=== PATIENT | female | born 1995 | race Caucasian/White ===

== ENCOUNTER 2016-09-20 16:28 | Observation (INO) | payer OTHER, SELFPAY ==
[~2016-09-20] VITALS: Ht 162.6 cm; Wt 90.1 kg
[2016-09-20] MEDS ORDERED: Plaquenil (16:39)
[2016-09-20] MEDS ORDERED: [UNRECOGNIZED DRUG - OTHER] (16:39)
[2016-09-20] MEDS ORDERED: OMEP20CA3 PO (16:39)
[2016-09-20] MEDS ORDERED: ONDA4TAB6 (16:39)
[2016-09-20] MEDS ORDERED: HYDR-3713 (16:39)
[2016-09-20] MEDS ORDERED: ONDANSETRON 4 MG ORAL DISINTEGRATING TAB (S0181) PO ONE (18:45)
[2016-09-20] MEDS: ONDANSETRON 4MG/2ML VIAL (J2405) IV ONE ×2 (19:03→20:23)
[2016-09-20] MEDS: NS 1,000 ML IV ONE ×2 (19:03→19:30)
[2016-09-20 19:14] LABS: BASO % 0.3 % (0.0-1.0); EOS # 0.1 K/mm3 (0.0-0.50); EOS % 1.3 % (0.0-3.0); LARGE UNSTAINED CELL # 0.1 K/mm3 (0.0-0.4); LARGE UNSTAINED CELL % 1.8 % (0.0-4.0); LYMPH % 13.6 % (24.0-44.0); MEAN CORPUSCULAR HEMOGLOBIN 30.9 pg (27.0-33.0); MEAN CORPUSCULAR HGB CONC 34.3 g/dl (32.0-36.5); MEAN CORPUSCULAR VOLUME 90.1 fl (80.0-96.0); MONO # 0.4 K/mm3 (0.0-0.8); MONO % 5.3 % (0.0-5.0); NEUTROPHILS # 5.2 K/mm3 (1.8-7.7); NEUTROPHILS % 77.7 % (36.0-66.0); PLATELET COUNT, AUTOMATED 189 k/mm3 (150-450); RED CELL DISTRIBUTION WIDTH 14.5 % (11.5-14.5); WHITE BLOOD COUNT 6.6 K/mm3 (4.0-10.0)
[2016-09-20 19:30] LABS: CONTROL LINE UCG INT CTR LINE PRESENT
[2016-09-20 19:38] LABS: ALBUMIN 3.7 GM/DL (3.2-5.2); ALBUMIN/GLOBULIN RATIO 1.19 (1.00-1.93); ALKALINE PHOSPHATASE 73 U/L (45-117); ALT/SGPT 37 U/L (12-78); AMYLASE 37 U/L (25-115); ANION GAP 20 MEQ/L (8-16); AST/SGOT 37 U/L (15-37); BILIRUBIN,DIRECT 0.3 MG/DL (0.0-0.2); BILIRUBIN,TOTAL 0.9 MG/DL (0.2-1.0); BLOOD UREA NITROGEN 1 MG/DL (7-18); CALCIUM LEVEL 8.9 MG/DL (8.5-10.1); CARBON DIOXIDE LEVEL 16 MEQ/L (21-32); CHLORIDE LEVEL 107 MEQ/L (98-107); GLOMERULAR FILTRATION RATE > 60.0 (>60); GLUCOSE, FASTING 60 MG/DL (70-105); SODIUM LEVEL 143 MEQ/L (136-145); TOTAL PROTEIN 6.8 GM/DL (6.4-8.2)
[2016-09-20 19:43] LABS: POTASSIUM SERUM 3.7 MEQ/L (3.5-5.1)
[2016-09-20] MEDS ORDERED: GASTROGRAFIN SOLUTION 30ML (Q9963) PO ONE (21:00)
[2016-09-20] MEDS ORDERED: NORC1TAB4 PO (21:01)
[2016-09-20] MEDS ORDERED: CHEW500C2 PO (21:01)
[2016-09-20] MEDS ORDERED: VITACHTA PO (21:01)
[2016-09-20] MEDS ORDERED: B121000T PO (21:01)
[2016-09-20] MEDS ORDERED: METOCLOPRAMIDE INJ 10MG/2ML VIAL (J2765) As Ordered ONE (21:12)
[2016-09-20] MEDS ORDERED: METOCLOPRAMIDE INJ 10MG/2ML VIAL (J2765) IV ONE (21:15)
[2016-09-20] MEDS ORDERED: GASTROGRAFIN SOLUTION 30ML PO ONE (21:30)
[2016-09-20] MEDS ORDERED: NS 1,000 ML IV SCH (22:16)
[2016-09-20] MEDS ORDERED: ISOVUE-370 76% 100ML VIAL (Q9967) As Ordered ONE (22:28)
[2016-09-20] MEDS ORDERED: ACETAMINOPHEN TAB 650MG DOSE (2X325MG) PO PRN (22:30)
[2016-09-20 22:55] LABS: FREE T4 1.34 NG/DL (0.76-1.46)
--- NOTE | 2016-09-20 23:20 | REPUSA ---
CLINICAL HISTORY: Gastric bypass. Nausea, vomiting and diarrhea. TECHNIQUE: CT abdomen and pelvis following administration of IV contrast. Total DLP 654 mGy*cm COMPARISON: No pertinent prior studies are available at this time. CT ABDOMEN WITH CONTRAST: Lung bases: No lung base infiltrate or effusion. Stomach: Surgical changes of gastric bypass. Liver: Fatty hepatic infiltration. There is a focal region of decreased attenuation in the anterior l iver parenchyma measuring 1.5 cm diameter which is nonspecific. No intrahepatic ductal dilation. Gallbladder: Normally distended. Pancreas: No pancreatic duct dilation. Bowel loops: Nondistended. Spleen: Normal size. Adrenals: Normal size. Kidneys: No hydronephrosis. There are two small 10 mm foci of decreased attenuation in the right carlos l parenchyma which are nonspecific but can be seen in patients with pyelonephritis. Aorta: Normal caliber. Peritoneum: No free air. Lumbar spine: Degenerative spondylotic changes at L5-S1. CT PELVIS WITH CONTRAST: Colon: Mild amount of luminal fluid suggesting diarrhea. Appendix: Normal appendix is seen. Bladder: Normally distended. Uterus and adnexa : IUD noted. 1.8 cm left adnexal cyst. Peritoneum: No fluid. Skeleton: No acute findings. IMPRESSION: 1. Focal region of decreased attenuation in the anterior liver parenchyma of uncertain etiology. Diff erential diagnosis includes focal fatty infiltration versus hepatic infection in the appropriate clin ical scenario. If the patient has elevated liver enzymes or focal tenderness in the right upper quadr ant, consider further evaluation with ultrasound. There is no evidence of gallbladder obstruction or distention. 2. Two small 10 mm foci of decreased attenuation in the right renal parenchyma which are nonspecific but can be seen in patients with pyelonephritis. Correlate with urinalysis and clinical presentation.
--- NOTE | 2016-09-20 23:24 | HPEPDOC ---
General Date of Admission 09/20/16 Primary Care Physician: Frankie Marina MD Other Providers Upper GI Doctor at [facility]: Dr. Sibley Welding Specialist who did Gastric Bypass: Dr. Young Supposed to be seeing [facility] Rheumatology for Lupus but has not gone since 1 1/ 2 years Attending Physician: VICK POSEY DO Chief Complaint The patient is a 21-year-old female admitted with a reason for visit of Vomiting. Source: Patient History of Present Illness CHIEF COMPLAINT: nausea, vomiting, and diarrhea HISTORY OF PRESENT ILLNESS: Ms. Garcia is a 21 yo F with a PMH of nephrolithiasis, SLE, chronic back pain (bulging disc, curvature of spine, arthritis of spine, and spondylosis), and hypothyroidism, who presents to the [facility] ED this evening for intractable nausea, vomiting, and diarrhea. Is unable to tolerate PO. States that on Saturday, she had flank pain in the back that resembled her kidney stone pain she usually gets. States she's had kidney stones for a long time. She states she urinated and passed the kidney stone. The next day, she felt "woozy" ( nauseous), tried drinking fluids, kept gagging and vomiting liquids. States she was able to eat and keep food down however: fruits, mandarin oranges, liquid tasting type foods. This had continued for the rest of the week until last evening when she began to vomit foods, fruits, grapes, and she is still having the intolerance to keeping liquids down. States she has not been able to tolerate liquids since Saturday. Patient states she has a spell like this every month and this is the 4th time she has been unable to tolerate PO. However, this is the only time she is being admitted to the hospital she states. Is wondering if this could all be related to her kidney stone issues and having symptoms concomitantly with kidney stones. Her maternal aunt at bedside states patient lost 100 lbs since her gastric bypass surgery 4 months ago. She had a Ifrah-En-Y gastric bypass May 14, 2016. Prior to the gastric bypass, patient admits to eating fast foods and having a fatty diet. She also admits that she has not had issues with tolerating PO until after gastric bypass. Patient also denies recently being placed or taking any antibiotics. Upon ROS, patient denies fevers, headache, dizziness, blurred vision, cough, runny nose, chest pain, SOB, abdominal pain, constipation, hematuria, hematochezia. Admits to sore dry throat and difficulty swallowing because of dryness of throat. Admits to dry heaves since Saturday. Admits to postnasal drip since Saturday. Admits to heartburn since bypass. Admits to SOB and difficulty catching breath when vomiting. Admits to vomiting and diarrhea. Diarrhea began today and has had 4 bouts of loose watery green colored BMs in little spurts. States has had increase in BMs today than usual. States stool is foul smelling but it is usually green but it is formed normally. Admits to foul smelling urine , but no dysuria, urinary frequency, nor urgency. Denies flank pain at this time. ALLERGIES: Codeine: throat swelling reaction No environmental allergies or allergies to antibiotics PAST MEDICAL HISTORY: Nephrolithiasis Systemic Lupus Erythematosus Chronic back pain: per patient, has bulging disc, curvature of spine, arthritis of spine, and spondylosis Hypothyroidism PAST SURGICAL HISTORY: Ifrah-En-Y Gastric Bypass Surgery on 05/14/[address] Young from [facility] Tonsillectomy & Adenoidectomy SOCIAL HISTORY: Denies tobacco use. Denies EtOH use. Denies illicit drug use. Lives at home with and 2 year old daughter. No pets. 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 PHYSICAL EXAMINATION: Please see vitals and PE below. Patient afebrile with stable vital signs. Was tachycardic at 102 earlier tonight. Had (+) Orthostatics as well. LABORATORY DATA: CBC remarkable for Hgb 17.1, Hct 49.7, no elevated WBC count, Neut % 77.7, Lymph %: 13.6 CMP remarkable for BUN: 1, Creatinine WNL, Fasting glucose: 0, Direct Bilirubin : 0.3. Alk phos, LFTs, amylase & lipase were all WNL. Urine Pregancy: (-) UA: 1 squamous epithelial cell, 2+ protein, 2+ ketones, 2+ blood, trace leukocyte esterase, 7 WBCs, 97 RBCs TSH & Free T4 pending MICROBIOLOGY: Urine cx pending GI Panel Pending RADIOLOGY: CT of Abdomen/Pelvis pending. ASSESSMENT: 21 yo F is presenting for a 5 day hx of acute intractable nausea & vomiting, and a 1 day hx of diarrhea. Is unable to tolerate PO. PLAN: Admit to inpatient service. -Intractable nausea & vomiting: Follow up results of CT scan of abdomen/pelvis. Keep NPO. Give IVF: NS @ 100 mLs/hr. Bowel rest. Can give sips and ice chips. Zofran for nausea. -Diarrhea: GI panel pending. IVF for now. -H/O Nephrolithiasis: No evidence of flank pain. Possible UTI with UA results. Follow up urine cx when available. IVF for now. -Systemic Lupus Erythematosus: Stable at this point in time. Recommend outpatient follow up with Rheumatology. -Chronic back pain: pain control with PRN acetaminophen for now. Will consider stronger pain medications if needed. -Hypothyroidism: will check TSH and Free T4. DVT ppx: TEDs, SCDs, and SC lovenox. FULL CODE STATUS Immunizations as per protocol. My preceptor for this patient encounter was Dr. Vick Posey, and was physically present in the building during the encounter and was fully available. As needed, all aspects of the patient interview, examination, medical decision making process, and medical care plan development were reviewed and approved by the preceptor. Preceptor is aware and concurs with the plan as stated in the body of this note and will attest to such by his/her cosignature. Home Medications Scheduled Calcium Carbonate (Calcium) 500 Mg Chw, 500 MG PO DAILY, (Reported) Cyanocobalamin (B12) 1,000 Mcg Tab, 1,000 MCG PO DAILY, (Reported) Multivitamins Chewable *[facility] STOCKED* (Animal Shapes with C & FA *[facility] STOCKED*) 1 Tab Chew, 2 TAB PO DAILY, (Reported) Omeprazole (Omeprazole) 20 Mg Cap, 20 MG PO BID, (Reported) Scheduled PRN Acetaminophen/Hydrocodone ([place] 5-325 mg) 1 Tab Tab, 1 TAB PO Q4H PRN for PAIN, (Reported) Allergies Coded Allergies: Codeine (Verified Allergy, Severe, throat tightens, 09/20/16) Physical Examination General Exam: Positive: Alert, Cooperative, No Acute Distress Eye Exam: Positive: Conjunctiva & lids normal ENT Exam: Positive: Atraumatic, Pharynx Normal, Tongue Midline, Other ENT (dry tongue but mucous membranes moist), Negative: Pharyngeal Edema Neck Exam: Positive: Supple, Other (thyroid nodules palpable in L side of thyroid gland), Negative: JVD, thyromegaly, Lymphadenopathy Chest Exam: Positive: Clear to auscultation, Normal air movement, Negative: Rales, Rhonchi, Wheezing Heart Exam: Positive: Rate Normal, Regular Rhythm, Normal S1, Normal S2, Negative: Gallops, Murmurs, Rubs Abdomen Exam: Positive: Normal bowel sounds, Soft, Tenderness, Other (Mildly (+ ) Merino's Sign. Otherwise, no peritoneal signs on exam.), Negative: Hepatospenomegaly, Mass Extremity Exam: Negative: Clubbing, Cyanosis, Edema Skin Exam: Positive: Nl turgor and temperature, Negative: Rash, Breakdown, Lesion Neuro Exam: Positive: Normal Speech, Sensation Intact, Other (No focal neurologic deficits appreciated. ) Psych Exam: Positive: Mental status NL, Mood NL, Memory Intact, Oriented x 3 Vital Signs Vital Signs Date Time Temp Pulse Resp B/P (MAP) Pulse Ox O2 Delivery O2 Flow Rate FiO2 09/20/16 20:29 98.4 73 18 99/56 (70) 100 Room Air Laboratory Data Labs 24H Laboratory Tests 2 09/20/16 19:01: White Blood Count 6.6, Red Blood Count 5.51H, Hemoglobin 17.1H, Hematocrit 49.7H , Mean Corpuscular Volume 90.1, Mean Corpuscular Hemoglobin 30.9, Mean Corpuscular Hemoglobin Concent 34.3, Red Cell Distribution Width 14.5, Platelet Count 189, Neutrophils (%) (Auto) 77.7H, Lymphocytes (%) (Auto) 13.6L, Monocytes (%) (Auto) 5.3H, Eosinophils (%) (Auto) 1.3, Basophils (%) (Auto) 0.3 , Neutrophils # (Auto) 5.2, Lymphocytes # (Auto) 1.0L, Monocytes # (Auto) 0.4, Eosinophils # (Auto) 0.1, Basophils # (Auto) 0.0, Large Unclassified Cells % 1.8 , Large Unclassified Cells # 0.1, Anion Gap 20H, Glomerular Filtration Rate > 60.0, Calcium Level 8.9, Magnesium Level 2.0, Aspartate Amino Transf (AST/SGOT) 37, Alanine Aminotransferase (ALT/SGPT) 37, Alkaline Phosphatase 73, Total Bilirubin 0.9, Direct Bilirubin 0.3H, Total Protein 6.8, Albumin 3.7, Albumin/ Globulin Ratio 1.19, Amylase Level 37, Lipase 111 09/20/16 19:12: Urine Appearance HAZY, Urine Color YELLOW, Urine pH 6.0, Urine Specific [place] 1.023, Urine Protein 2+H, Urine Glucose (UA) NEGATIVE, Urine Ketones 2+H, Urine Urobilinogen 0.2, Urine Bilirubin NEGATIVE, Urine Leukocyte Esterase TRACEH, Urine Blood 2+H, Urine Nitrite NEGATIVE, Urine WBC (Auto) 7H, Urine RBC (Auto) 97H, Urine Hyaline Casts (Auto) 0, Urine Bacteria (Auto) NEGATIVE, Urine Squamous Epithelial Cells 1, Urine Mucus (Auto) SMALL, Urine Sperm (Auto) , Urine Test NEGATIVE CBC/BMP Laboratory Tests 09/20/16 19:01 Red Blood Count 5.51 H, Mean Corpuscular Volume 90.1, Mean Corpuscular Hemoglobin 30.9, Mean Corpuscular Hemoglobin Concent 34.3, Red Cell Distribution Width 14.5, Neutrophils (%) (Auto) 77.7 H, Lymphocytes (%) (Auto) 13.6 L, Monocytes (%) (Auto) 5.3 H, Eosinophils (%) (Auto) 1.3, Basophils (%) ( Auto) 0.3, Neutrophils # (Auto) 5.2, Lymphocytes # (Auto) 1.0 L, Monocytes # ( Auto) 0.4, Eosinophils # (Auto) 0.1, Basophils # (Auto) 0.0 Microbiology Microbiology 09/20/16 Urine Culture, Received Pending Plan / VTE VTE Prophylaxis Ordered?: Yes (NEERAJ Leal) CINDY CERVANTES OGME-1 Sep 20, 2016 23:24
[2016-09-20] MEDS ORDERED: D5W/0.9% SODIUM CHLORIDE 1,000 ML IV SCH (23:45)
[2016-09-21 01:07] VITALS: BP 108/67
--- NOTE | 2016-09-21 01:20 | REPUSA ---
CLINICAL HISTORY: Abdominal pain. TECHNIQUE: Realtime sonographic images were obtained in multiple projections. COMMENTS: Fatty liver infiltration. No discrete hepatic mass is seen. There is no intra or extrahepatic biliary ductal dilatation. CBD measures 2 mm. The gallbladder is physiologically distended containing sludge and tiny calculi. The gallbladder wall is not thickened and there is no pericholecystic fluid. There is no abdominal as cites. The right kidney measures 11.1x5.3x6.6 cm, free of hydronephrosis. IMPRESSION: Cholelithiasis. Fatty liver. Thank you for your kind referral of this patient.
[2016-09-21] MEDS: D5W/0.45% SODIUM CHLORIDE 1,000 ML IV SCH ×3 (01:25→21:09)
[2016-09-21] MEDS: ONDANSETRON 4 MG TAB (S0181) PO PRN ×2 (01:26→11:30)
[2016-09-21] MEDS: cefTRIAXone SOD 1 GM in D5W MINI-BAG PLUS 50 ML IV SCH (01:26)
[2016-09-21 08:00] VITALS: BP 119/58
[2016-09-21 08:38] LABS: BASO % 0.3 % (0.0-1.0); EOS # 0.2 K/mm3 (0.0-0.50); EOS % 3.9 % (0.0-3.0); LARGE UNSTAINED CELL # 0.2 K/mm3 (0.0-0.4); LYMPH # 1.4 K/mm3 (1.5-6.5); LYMPH % 25.3 % (24.0-44.0); MEAN CORPUSCULAR HEMOGLOBIN 31.3 pg (27.0-33.0); MEAN CORPUSCULAR HGB CONC 35.2 g/dl (32.0-36.5); MONO # 0.5 K/mm3 (0.0-0.8); MONO % 9.4 % (0.0-5.0); NEUTROPHILS # 3.2 K/mm3 (1.8-7.7); NEUTROPHILS % 58.1 % (36.0-66.0); PLATELET COUNT, AUTOMATED 167 k/mm3 (150-450); RED CELL DISTRIBUTION WIDTH 14.3 % (11.5-14.5); WHITE BLOOD COUNT 5.5 K/mm3 (4.0-10.0)
[2016-09-21 08:44] LABS: ALBUMIN 2.9 GM/DL (3.2-5.2); ALBUMIN/GLOBULIN RATIO 1.12 (1.00-1.93); ALKALINE PHOSPHATASE 57 U/L (45-117); ALT/SGPT 28 U/L (12-78); ANION GAP 16 MEQ/L (8-16); AST/SGOT 23 U/L (15-37); BILIRUBIN,TOTAL 0.5 MG/DL (0.2-1.0); BLOOD UREA NITROGEN < 1 MG/DL (7-18); CALCIUM LEVEL 8.3 MG/DL (8.5-10.1); CARBON DIOXIDE LEVEL 18 MEQ/L (21-32); CHLORIDE LEVEL 110 MEQ/L (98-107); CREATININE FOR GFR 0.67 MG/DL (0.55-1.02); GLOMERULAR FILTRATION RATE > 60.0 (>60); GLUCOSE, FASTING 107 MG/DL (70-105); MAGNESIUM LEVEL 1.9 MG/DL (1.8-2.4); POTASSIUM SERUM 3.3 MEQ/L (3.5-5.1); SODIUM LEVEL 144 MEQ/L (136-145); TOTAL PROTEIN 5.5 GM/DL (6.4-8.2)
[2016-09-21] MEDS: PANTOPRAZOLE 40MG TAB (PROTONIX) PO SCH (09:17)
[2016-09-21] MEDS: ENOXAPARIN 40 MG/0.4 ML SYRINGE (J1650) SC SCH (09:17)
[2016-09-21] MEDS: CALCIUM CARBONATE 500 MG CHEW U/D PO SCH (09:17)
[2016-09-21] MEDS: CYANOCOBALAMIN 500 MCG TAB PO SCH (09:18)
[2016-09-21] MEDS: MULTIVITAMINS CHILDREN'S CHEWABLE TABLET PO SCH (09:18)
[2016-09-21 09:45] LABS: BILIRUBIN,DIRECT 0.2 MG/DL (0.0-0.2)
[2016-09-21] MEDS: POTASSIUM CHLORIDE 10 MEQ SR TABLET PO ONE ×2 (10:30→10:47)
[2016-09-21] MEDS ORDERED: METOCLOPRAMIDE INJ 10MG/2ML VIAL (J2765) IV PRN (13:15)
[2016-09-21 16:00] VITALS: BP 113/63
[2016-09-21 20:00] VITALS: BP 115/67
--- NOTE | 2016-09-21 22:50 | IPNPDOC ---
Text Note Date of Service The patient was seen on 09/21/16. NOTE Subjective: Patient seen and examined at bedside. Feeling better, still admits to nausea, diarrhea. Denies any fever, chills, chest pain, sob, abdominal pain, vomiting, blood in urine or stool. Denies any other current new complaints. Objective: Vitals: (See below) General: Patient is a pleasant young female laying comfortably in bed, AAOx3, not in apparent distress, with head elevated at 30 degrees HEENT: Normal cephalic atraumatic, Extraocular motion intact, pupil equal round and reactive to light, ~mucosal membrane moist, neck supple, no neck lymphadenopathy Cardio: RRR, Normal S1, S2, No murmur/rubs/gallops Pulm: Clear to auscultations bilaterally, no wheezing, rales, or rhonchi. Abdomen: + bowel sounds, soft, none tender, none distended, no peritoneal signs , no ecchymosis, no masses that were palpable, Merino sign negative Ext: No edema, clubbing, or cyanosis Skin: Warm and dry Neuro: Cranial Nerve 2 through 12 intact, No focal neurological deficit Labs ( See below) Most significantly: hgb dropped from 17 to 14.7, K 3.3 from 3.7, fasting glucose from 60 to 107, UA showed trace LE, WBC Urine Culture is pending Images/Procedures: CT of A&P: Focal region of decreased attenuation in ant liver parenchyma of uncertain etiology. D/Dx focal fatty infiltration vs. hepatic infection, 2 small 10 mm foci right renal parenchymal, nonspecific but can be seen in patient with pyelonephritis Abdominal limited US: fatty liver infiltration, cholelithiasis Assessment and Plan: Intractable nausea and gagging: - CLD to FLD - IVF NS 100 mlh - Zofran and Reglan PRN Diarrhea - GI panel negative - Possible related to gastric bypass and weight loss vs. SLE Pyelonephritis - mildly positive UA with CT findings - Continue IV abx Rocephin 1Gm q24h Fatty liver infiltration - Patient used to be obese - Will check hepatitis panel however Cholelithiasis - Merino sign negative - no sonographic findings Chronic pain - Tylenol Hypothyroidism: - TSH wnl DVT prophylaxis: Lovenox 40 mg sc daily Fluid, Electrolytes, Nutrition: D5 NS 100 mlh, FLD Code: Full code. Disposition: Possible discharge once patient tolerate diet and diarrhea better controlled. VS,Fishbone, I+O VS, Fishbone, I+O Laboratory Tests 09/21/16 07:32 Red Blood Count 4.68, Mean Corpuscular Volume 89.0, Mean Corpuscular Hemoglobin 31.3, Mean Corpuscular Hemoglobin Concent 35.2, Red Cell Distribution Width 14.3 , Neutrophils (%) (Auto) 58.1, Lymphocytes (%) (Auto) 25.3, Monocytes (%) (Auto ) 9.4 H, Eosinophils (%) (Auto) 3.9 H, Basophils (%) (Auto) 0.3, Neutrophils # ( Auto) 3.2, Lymphocytes # (Auto) 1.4 L, Monocytes # (Auto) 0.5, Eosinophils # ( Auto) 0.2, Basophils # (Auto) 0.0, Calcium Level 8.3 L, Aspartate Amino Transf ( AST/SGOT) 23, Alanine Aminotransferase (ALT/SGPT) 28, Alkaline Phosphatase 57, Total Bilirubin 0.5, Direct Bilirubin 0.2, Total Protein 5.5 L, Albumin 2.9 #L Vital Signs Date Time Temp Pulse Resp B/P (MAP) Pulse Ox O2 Delivery O2 Flow Rate FiO2 09/21/16 16:00 97.3 65 18 113/63 (80) 99 09/21/16 09:36 Room Air I&O- Last 24 Hours up to 6 AM 09/21/16 06:00 Intake Total 1550 ml Output Total 0 ml Balance 1550 ml GME ATTESTATION GME ATTESTATION My preceptor for this patient encounter was physically present in the building during the encounter and was fully available. As needed, all aspects of the patient interview, examination, medical decision making process, and medical care plan development were reviewed and approved by the preceptor. Preceptor is aware and concurs with the plan as stated in the body of this note and will attest to such by his/her cosignature. ATTENDING NOTE I, Vicenta Villalobos, have both independently examined this patient as well as reviewed the documentation. I have discussed in detail with the resident the findings and plan of treatment as documented in the residents documentation. I will continue to follow the patient and offer further guidance to the patients care as necessary during this hospital stay. SOFIA THORNE DO Sep 21, 2016 22:50 VICENTA VILLALOBOS MD Sep 22, 2016 17:37
[2016-09-22] VITALS: BP 96/55
[2016-09-22] MEDS: cefTRIAXone SOD 1 GM in D5W MINI-BAG PLUS 50 ML IV SCH (00:11)
[2016-09-22] MEDS: D5W/0.45% SODIUM CHLORIDE 1,000 ML IV SCH (06:53)
[2016-09-22 07:57] LABS: BASO % 0.5 % (0.0-1.0); EOS # 0.2 K/mm3 (0.0-0.50); LARGE UNSTAINED CELL # 0.1 K/mm3 (0.0-0.4); LARGE UNSTAINED CELL % 1.8 % (0.0-4.0); LYMPH # 1.9 K/mm3 (1.5-6.5); LYMPH % 42.1 % (24.0-44.0); MEAN CORPUSCULAR HEMOGLOBIN 31.4 pg (27.0-33.0); MEAN CORPUSCULAR HGB CONC 35.6 g/dl (32.0-36.5); MEAN CORPUSCULAR VOLUME 88.1 fl (80.0-96.0); MONO # 0.4 K/mm3 (0.0-0.8); MONO % 8.6 % (0.0-5.0); NEUTROPHILS # 1.8 K/mm3 (1.8-7.7); NEUTROPHILS % 43.1 % (36.0-66.0); PLATELET COUNT, AUTOMATED 156 k/mm3 (150-450); RED CELL DISTRIBUTION WIDTH 14.6 % (11.5-14.5); WHITE BLOOD COUNT 4.2 K/mm3 (4.0-10.0)
[2016-09-22 08:00] VITALS: BP 110/58
[2016-09-22 08:04] LABS: ALBUMIN 2.9 GM/DL (3.2-5.2); ALBUMIN/GLOBULIN RATIO 1.16 (1.00-1.93); ALKALINE PHOSPHATASE 59 U/L (45-117); ALT/SGPT 33 U/L (12-78); ANION GAP 13 MEQ/L (8-16); AST/SGOT 30 U/L (15-37); BILIRUBIN,TOTAL 0.6 MG/DL (0.2-1.0); BLOOD UREA NITROGEN < 1 MG/DL (7-18); CALCIUM LEVEL 8.1 MG/DL (8.5-10.1); CARBON DIOXIDE LEVEL 23 MEQ/L (21-32); CHLORIDE LEVEL 109 MEQ/L (98-107); CREATININE FOR GFR 0.62 MG/DL (0.55-1.02); GLOMERULAR FILTRATION RATE > 60.0 (>60); GLUCOSE, FASTING 101 MG/DL (70-105); MAGNESIUM LEVEL 1.7 MG/DL (1.8-2.4); POTASSIUM SERUM 2.6 MEQ/L (3.5-5.1); SODIUM LEVEL 145 MEQ/L (136-145); TOTAL PROTEIN 5.4 GM/DL (6.4-8.2)
[2016-09-22] MEDS: KCL 10MEQ IN 100ML SWI (KRUN) 10 MEQ in APPROPRIATE DILUENT 1 EA IV SCH ×8 (11:00→15:46)
[2016-09-22] MEDS: MULTIVITAMINS CHILDREN'S CHEWABLE TABLET PO SCH (12:05)
[2016-09-22] MEDS: CALCIUM CARBONATE 500 MG CHEW U/D PO SCH (12:05)
[2016-09-22] MEDS: ONDANSETRON 4 MG TAB (S0181) PO PRN (12:05)
[2016-09-22] MEDS: CYANOCOBALAMIN 500 MCG TAB PO SCH (12:06)
[2016-09-22] MEDS: POTASSIUM CHLORIDE 10% LIQ 20 MEQ/15 ML UDC PO ONE ×2 (12:07→13:58)
[2016-09-22] MEDS: PANTOPRAZOLE 40MG TAB (PROTONIX) PO SCH (12:07)
[2016-09-22] MEDS: ENOXAPARIN 40 MG/0.4 ML SYRINGE (J1650) SC SCH (12:18)
[2016-09-22] MEDS ORDERED: POTASSIUM CHLORIDE 10 MEQ SR TABLET PO SCH ×2 (13:45→21:00)
[2016-09-22] MEDS ORDERED: KCL 40MEQ IN D5/0.45NS 1000ML 1,000 ML IV SCH (13:45)
[2016-09-22] MEDS ORDERED: KCL 20MEQ IN D5/0.45NS 1000ML 1,000 ML IV SCH (13:45)
--- NOTE | 2016-09-22 14:46 | IPNPDOC ---
Text Note Date of Service The patient was seen on 09/22/16. NOTE Subjective: Patient seen and examined at bedside. Admits to nausea has resolved , still having diarrheas twice yesterday. Denies any fever, chills, chest pain, sob, abdominal pain, vomiting, blood in urine or stool. Denies any other current new complaints. Objective: Vitals: (See below) General: Patient is a young female laying comfortably in bed, AAOx3, not in apparent distress, with head elevated at 30 degrees HEENT: Normal cephalic atraumatic, Extraocular motion intact, pupil equal round and reactive to light, mucosal membrane moist, neck supple, no neck lymphadenopathy Cardio: RRR, Normal S1, S2, No murmur/rubs/gallops Pulm: Clear to auscultations bilaterally, no wheezing, rales, or rhonchi. Abdomen: + bowel sounds, soft, none tender, none distended, no peritoneal signs , no ecchymosis, no masses that were palpable, Merino sign negative Ext: No edema, clubbing, or cyanosis Skin: Warm and dry Neuro: Cranial Nerve 2 through 12 intact, No focal neurological deficit Labs ( See below) Most significantly: K 2.6 Urine Culture was contaminated Images/Procedures: no new imaging Assessment and Plan: Intractable nausea and gagging: - FLD to Regular diet - IVF K40 1/2NS 100 mlh - Zofran and Reglan PRN Hypokalemia - K 3.3 yesterday, 2.6 today - Patient refused PO potassium yesterday also liquid K this am - Refused peripheral IV 10 meq K runs at low rate as well - Transfer patient to higher level - Possible Central line if patient still refuse PO and IV K - Started lomotil in conjunction with K repletion to prevent more GI K loss Diarrhea - GI panel negative - Possible related to gastric bypass and weight loss vs. SLE - Started lomotil Pyelonephritis - mildly positive UA with CT findings - Continue IV abx Rocephin 1Gm q24h Fatty liver infiltration - Patient used to be obese - Will check hepatitis panel however Cholelithiasis - Merino sign negative - no sonographic findings Chronic pain - Tylenol Hypothyroidism: - TSH wnl DVT prophylaxis: Lovenox 40 mg sc daily Fluid, Electrolytes, Nutrition: K40 D5 NS 100 mlh, regular Code: Full code. Disposition: Possible discharge once patient tolerate diet and diarrhea better controlled. VS,Fishbone, I+O VS, Fishbone, I+O Laboratory Tests 09/22/16 07:18 Red Blood Count 4.59, Mean Corpuscular Volume 88.1, Mean Corpuscular Hemoglobin 31.4, Mean Corpuscular Hemoglobin Concent 35.6, Red Cell Distribution Width 14.6 H, Neutrophils (%) (Auto) 43.1, Lymphocytes (%) (Auto) 42.1, Monocytes (%) (Auto) 8.6 H, Eosinophils (%) (Auto) 4.0 H, Basophils (%) (Auto) 0.5, Neutrophils # (Auto) 1.8, Lymphocytes # (Auto) 1.9, Monocytes # (Auto) 0.4, Eosinophils # (Auto) 0.2, Basophils # (Auto) 0.0, Calcium Level 8.1 L, Aspartate Amino Transf (AST/SGOT) 30, Alanine Aminotransferase (ALT/SGPT) 33, Alkaline Phosphatase 59, Total Bilirubin 0.6, Total Protein 5.4 L, Albumin 2.9 L Vital Signs Date Time Temp Pulse Resp B/P (MAP) Pulse Ox O2 Delivery O2 Flow Rate FiO2 09/22/16 08:00 97.7 76 18 110/58 (75) 99 Room Air I&O- Last 24 Hours up to 6 AM 09/22/16 06:00 Intake Total 1780 ml Output Total 1650 ml Balance 130 ml GME ATTESTATION GME ATTESTATION My preceptor for this patient encounter was physically present in the building during the encounter and was fully available. As needed, all aspects of the patient interview, examination, medical decision making process, and medical care plan development were reviewed and approved by the preceptor. Preceptor is aware and concurs with the plan as stated in the body of this note and will attest to such by his/her cosignature. ATTENDING NOTE I, Vicenta Villalobos, have both independently examined this patient as well as reviewed the documentation. I have discussed in detail with the resident the findings and plan of treatment as documented in the residents documentation. I will continue to follow the patient and offer further guidance to the patients care as necessary during this hospital stay. SOFIA THORNE DO Sep 22, 2016 14:46 VICENTA VILLALOBOS MD Oct 16, 2016 18:49
[2016-09-22] MEDS ORDERED: LOMOTIL 2.5MG/0.025MG TABLET PO SCH (15:00)
[2016-09-22 16:00] VITALS: BP 109/67
[2016-09-22 18:00] VITALS: BP 124/83
[2016-09-22 19:54] VITALS: BP 113/69
[2016-09-22 20:18] LABS: ANION GAP 11 MEQ/L (8-16); BLOOD UREA NITROGEN < 1 MG/DL (7-18); CARBON DIOXIDE LEVEL 23 MEQ/L (21-32); CHLORIDE LEVEL 109 MEQ/L (98-107); CREATININE FOR GFR 0.68 MG/DL (0.55-1.02); GLOMERULAR FILTRATION RATE > 60.0 (>60); GLUCOSE, FASTING 106 MG/DL (70-105); POTASSIUM SERUM 2.9 MEQ/L (3.5-5.1); SODIUM LEVEL 143 MEQ/L (136-145)
[2016-09-22] MEDS: AUGMENTIN 875 MG TAB PO SCH (21:49)
[2016-09-22] MEDS: POTASSIUM CHLORIDE 10 MEQ SR TABLET PO SCH ×2 (21:49→22:17)
[2016-09-22] MEDS ORDERED: POTA10CA PO (23:05)
[2016-09-22] MEDS ORDERED: AMOX875T2 PO (23:05)
[2016-09-22] MEDS ORDERED: ZOFR20TA PO (23:05)
[2016-09-22 23:41] VITALS: BP 112/65
[2016-09-23 05:36] VITALS: BP 116/63
[2016-09-23 05:52] LABS: ADD MANUAL DIFFER YES; DIFF SLIDE NUMBER 44; MEAN CORPUSCULAR HEMOGLOBIN 30.4 pg (27.0-33.0); MEAN CORPUSCULAR HGB CONC 34.5 g/dl (32.0-36.5); MEAN CORPUSCULAR VOLUME 88.2 fl (80.0-96.0); PLATELET COUNT, AUTOMATED 163 k/mm3 (150-450); RED CELL DISTRIBUTION WIDTH 14.7 % (11.5-14.5); WHITE BLOOD COUNT 4.3 K/mm3 (4.0-10.0)
[2016-09-23 05:56] LABS: ALBUMIN 2.8 GM/DL (3.2-5.2); ALKALINE PHOSPHATASE 60 U/L (45-117); ALT/SGPT 71 U/L (12-78); ANION GAP 10 MEQ/L (8-16); AST/SGOT 101 U/L (15-37); BILIRUBIN,TOTAL 0.8 MG/DL (0.2-1.0); BLOOD UREA NITROGEN 2 MG/DL (7-18); CALCIUM LEVEL 7.8 MG/DL (8.5-10.1); CARBON DIOXIDE LEVEL 24 MEQ/L (21-32); CHLORIDE LEVEL 113 MEQ/L (98-107); CREATININE FOR GFR 0.47 MG/DL (0.55-1.02); GLOMERULAR FILTRATION RATE > 60.0 (>60); GLUCOSE, FASTING 83 MG/DL (70-105); MAGNESIUM LEVEL 1.7 MG/DL (1.8-2.4); POTASSIUM SERUM 3.3 MEQ/L (3.5-5.1); SODIUM LEVEL 147 MEQ/L (136-145); TOTAL PROTEIN 5.6 GM/DL (6.4-8.2)
[2016-09-23 07:17] LABS: ANISOCYTOSIS 1+; BASOPHILS 2 % (0-4); EOSINOPHILS 1 % (0-5)
[2016-09-23] MEDS ORDERED: MAG SULF 1GM/100ML (MAG RUN) 1 GM in APPROPRIATE DILUENT 1 EA IV ONE (07:45)
[2016-09-23 08:00] VITALS: BP 113/64
[2016-09-23] MEDS ORDERED: POTASSIUM CHLORIDE 10 MEQ SR TABLET PO ONE (08:00)
[2016-09-23] MEDS ORDERED: MAGNESIUM OXIDE 400 MG TAB (MAG-OX) PO ONE (08:00)
[2016-09-23] MEDS ORDERED: FIBER-CON 625 MG TAB PO SCH (09:00)
[2016-09-23] MEDS: ENOXAPARIN 40 MG/0.4 ML SYRINGE (J1650) SC SCH (09:18)
[2016-09-23] MEDS: CALCIUM CARBONATE 500 MG CHEW U/D PO SCH (09:19)
[2016-09-23] MEDS: PANTOPRAZOLE 40MG TAB (PROTONIX) PO SCH (09:19)
[2016-09-23] MEDS: MULTIVITAMINS CHILDREN'S CHEWABLE TABLET PO SCH (09:20)
[2016-09-23] MEDS: AUGMENTIN 875 MG TAB PO SCH (09:20)
[2016-09-23] MEDS: CYANOCOBALAMIN 500 MCG TAB PO SCH (09:21)
[2016-09-23] MEDS ORDERED: SLF 3 ML SYR IV PRN (09:30)
[2016-09-23 12:00] VITALS: BP 123/75
[2016-09-23] MEDS ORDERED: SLF 3 ML SYR IV SCH (14:00)
[2016-09-23 15:01] LABS: ANION GAP 10 MEQ/L (8-16); BLOOD UREA NITROGEN 1 MG/DL (7-18); CALCIUM LEVEL 8.8 MG/DL (8.5-10.1); CARBON DIOXIDE LEVEL 24 MEQ/L (21-32); CHLORIDE LEVEL 111 MEQ/L (98-107); CREATININE FOR GFR 0.57 MG/DL (0.55-1.02); GLOMERULAR FILTRATION RATE > 60.0 (>60); GLUCOSE, FASTING 86 MG/DL (70-105); MAGNESIUM LEVEL 1.7 MG/DL (1.8-2.4); POTASSIUM SERUM 3.5 MEQ/L (3.5-5.1); SODIUM LEVEL 145 MEQ/L (136-145)
[2016-09-23] MEDS ORDERED: MAGN400C3 PO (15:19)
[2016-09-23] MEDS ORDERED: MICR10CA PO (15:19)
[2016-09-23] MEDS ORDERED: FLUCONAZOLE 50MG TABLET PO ONE (16:00)
--- NOTE | 2016-09-23 19:56 | DSES ---
DATE OF ADMISSION: 09/20/2016 DATE OF DISCHARGE: 09/23/2016 PRIMARY CARE PHYSICIAN: Dr. Frankie Marina REFERRING PHYSICIAN: None. CONSULTING PHYSICIAN: None. CONDITION ON DISCHARGE: Stable. FINAL DIAGNOSIS: Gastroenteritis. PROCEDURE: None. HISTORY OF PRESENT ILLNESS: Patient is a 21-year-old female with a past medical history of nephrolithiasis, systemic lupus erythematosus (SLE), chronic back pain, hypothyroidism who presented to the emergency room (ER) with complaints of nausea, vomiting, diarrhea. Upon presentation in the emergency room patient was found to have intractable nausea and vomiting. Urinalysis was consistent with a urinary tract infection. HOSPITAL COURSE: 1. Intractable nausea and vomiting, likely secondary to gastroenteritis. Patient has had symptomatic relief with Zofran and Reglan. Intravenous (IV) fluids were started with potassium supplementation. Patient was on nothing by mouth diet, and then her diet has been advanced to clear liquid diet, and now has been advanced to regular diet. 2. Hypokalemia. Potassium was low throughout the hospital course. Patient's IV fluids were supplemented with potassium. She received several IV infusions of potassium and oral supplementation of potassium. Upon discharge patient has been given a potassium supplementation. 3. Diarrhea. Gastrointestinal (GI) panel has been negative, likely secondary to viral etiology. 4. Urinary tract infection. Urinalysis consistent with urinary tract infection. Imaging on CT scan with possible pyelonephritis; however, based on patient's history, patient has recently passed a kidney stone. 5. Fatty liver infiltration. Imaging CT scan showed that there might be some hepatic infection; however, upon discussion with patient, patient has a history of stage II fibrosis of her liver. Patient did have obesity prior and has had a gastric bypass for weight loss. Hepatitis panel was required, results of which are still pending. 6. Cholelithiasis. No evidence of acute cholecystitis. 7. Chronic pain. 8. Hypothyroidism history. Thyroid-stimulating hormone (TSH) was within normal limits. Not on any medications throughout this time. 9. Gastrointestinal (GI) prophylaxis. Continue with Protonix. 10. Deep vein thrombosis (DVT) prophylaxis. She has been put on Lovenox. DISCHARGE MEDICATIONS: Patient has been discharged on the following medication list: - amoxicillin 875 mg by mouth twice a day for the next 2 days - magnesium oxide 400 mg by mouth daily - potassium chloride 10 mEq by mouth twice a day - Tylenol one tablet by mouth every 4 hours as needed pain - calcium carbonate 500 mg by mouth daily - B12 supplementation, 1000 mcg by mouth daily - multivitamin one tablet by mouth daily - omeprazole 20 mg by mouth twice a day DISCHARGE INSTRUCTIONS: Patient has been advised to followup with her primary care provider within the next 7 days. She has been advised to remain compliant with treatment plan and medications and return to the emergency room if she experiences any problems. TIME SPENT ON DISCHARGE: 35 minutes.
[2016-10-16] MEDS ORDERED: MAG400TA (13:23)
[2016-10-16] MEDS ORDERED: POTA1TAB23 (13:23)
[2016-10-16] MEDS ORDERED: ONDA4TAB5 (13:23)
[2016-10-16] MEDS ORDERED: PHEN1SUP6 PR (15:02)
[2016-10-18] MEDS ORDERED: ZOFR4TAB3 PO (22:03)
[2016-10-18] MEDS ORDERED: REGL10TA6 PO (22:04)
== END 2016-09-23 16:34 | disposition home or self-care (01) ==
LOC: M ED 16:28 → M ED INP 16:29 → M PED 09-21 01:07 → M PCU 09-22 17:38
PROVIDERS: ADMIT Hospitalist; ATTEND Internal Medicine
DX: K52.9 Noninfective gastroenteritis and colitis, unspecified (principal); E87.6 Hypokalemia; N39.0 Urinary tract infection, site not specified; K76.0 Fatty (change of) liver, not elsewhere classified; K74.0 Hepatic fibrosis; K80.20 Calculus of gallbladder without cholecystitis without obstruction; G89.29 Other chronic pain; E03.9 Hypothyroidism, unspecified; Z98.84 Bariatric surgery status; M32.9 Systemic lupus erythematosus, unspecified; M54.9 Dorsalgia, unspecified; K21.9 Gastro-esophageal reflux disease without esophagitis; G47.33 Obstructive sleep apnea (adult) (pediatric); E86.0 Dehydration; Z79.899 Other long term (current) drug therapy; Z88.5 Allergy status to narcotic agent
CPT/HCPCS: 36415; 74177; 76705; 80053; 80076; 81001; 82150; 83690; 83735; 84439; 84443; 84703; 85025; 87086; 87507; 96361; 96365; 96366; 96367; 96372; 96375; 96376; 99284; J0696; J1650; J2405; J2765; Q9963; Q9967

== ENCOUNTER → 2016-10-10 | Outpatient (CLI) | payer SELFPAY ==
[~2016-10-10] MED LIST: AMOX875T2 PO; B121000T PO; CHEW500C2 PO; HYDR-3713; MAG400TA; MAGN400C3 PO; MICR10CA PO; NORC1TAB4 PO; OMEP20CA3 PO; ONDA4TAB5; ONDA4TAB6; PHEN1SUP6 PR; POTA10CA PO; POTA1TAB23; Plaquenil; REGL10TA6 PO; VITACHTA PO; ZOFR20TA PO; ZOFR4TAB3 PO; [UNRECOGNIZED DRUG - OTHER]
[2016-10-10 18:20] LABS: ANION GAP 14 MEQ/L (8-16); BLOOD UREA NITROGEN 4 MG/DL (7-18); CALCIUM LEVEL 8.6 MG/DL (8.5-10.1); CARBON DIOXIDE LEVEL 23 MEQ/L (21-32); CHLORIDE LEVEL 106 MEQ/L (98-107); CREATININE FOR GFR 0.54 MG/DL (0.55-1.02); GLOMERULAR FILTRATION RATE > 60.0 (>60); GLUCOSE, FASTING 57 MG/DL (70-105); POTASSIUM SERUM 4.6 MEQ/L (3.5-5.1); SODIUM LEVEL 143 MEQ/L (136-145)
== END ==
LOC: M LAB 15:22
PROVIDERS: ATTEND Nurse Practitioner
DX: A09 Infectious gastroenteritis and colitis, unspecified (principal); E87.6 Hypokalemia; M06.9 Rheumatoid arthritis, unspecified

== ENCOUNTER → 2016-10-10 | Outpatient (CLI) | payer SELFPAY ==
[2016-10-10 19:18] LABS: ALBUMIN 3.2 GM/DL (3.2-5.2); ALBUMIN/GLOBULIN RATIO 0.97 (1.00-1.93); ALKALINE PHOSPHATASE 74 U/L (45-117); ALT/SGPT 44 U/L (12-78); ANION GAP 11 MEQ/L (8-16); AST/SGOT 27 U/L (15-37); BLOOD UREA NITROGEN 4 MG/DL (7-18); CALCIUM LEVEL 8.6 MG/DL (8.5-10.1); CARBON DIOXIDE LEVEL 25 MEQ/L (21-32); CHLORIDE LEVEL 106 MEQ/L (98-107); CREATININE FOR GFR 0.53 MG/DL (0.55-1.02); FERRITIN 212 NG/ML (8-252); GLOMERULAR FILTRATION RATE > 60.0 (>60); GLUCOSE, FASTING 49 MG/DL (70-105); MAGNESIUM LEVEL 1.9 MG/DL (1.8-2.4); PERCENT SATURATION 40.9 % (13.2-45.0); PHOSPHORUS LEVEL 3.2 MG/DL (2.5-4.9); POTASSIUM SERUM 4.6 MEQ/L (3.5-5.1); SODIUM LEVEL 142 MEQ/L (136-145); TOTAL IRON BINDING CAPACITY 198 UG/DL (250-450); TOTAL PROTEIN 6.5 GM/DL (6.4-8.2)
[2016-10-10 19:19] LABS: BASO % 0.8 % (0.0-1.0); EOS # 0.1 K/mm3 (0.0-0.50); EOS % 1.4 % (0.0-3.0); LARGE UNSTAINED CELL # 0.1 K/mm3 (0.0-0.4); LARGE UNSTAINED CELL % 2.4 % (0.0-4.0); LYMPH # 1.8 K/mm3 (1.5-6.5); LYMPH % 36.9 % (24.0-44.0); MEAN CORPUSCULAR HEMOGLOBIN 31.6 pg (27.0-33.0); MEAN CORPUSCULAR HGB CONC 33.7 g/dl (32.0-36.5); MEAN CORPUSCULAR VOLUME 93.8 fl (80.0-96.0); MONO # 0.4 K/mm3 (0.0-0.8); MONO % 7.4 % (0.0-5.0); NEUTROPHILS # 2.5 K/mm3 (1.8-7.7); NEUTROPHILS % 51.2 % (36.0-66.0); PLATELET COUNT, AUTOMATED 194 k/mm3 (150-450); RED CELL DISTRIBUTION WIDTH 13.9 % (11.5-14.5); WHITE BLOOD COUNT 4.9 K/mm3 (4.0-10.0)
[2016-10-10 19:24] LABS: VITAMIN B12 LEVEL 960 PG/ML (247-911)
[2016-10-12 11:03] LABS: PRETREATED FOLATE FOR RBCFOL 6.9 NG/ML
== END ==
LOC: M LAB 15:12
PROVIDERS: ATTEND Surgery
DX: K91.2 Postsurgical malabsorption, not elsewhere classified (principal); Z98.84 Bariatric surgery status; E55.9 Vitamin D deficiency, unspecified

== ENCOUNTER 2017-02-25 20:31 | Emergency (ER) | payer MEDICAID ==
[2017-02-25] MEDS ORDERED: CYCLOBENZAPRINE 10 MG TAB PO (22:30)
== END 2017-02-25 22:38 | disposition home or self-care (01) ==
LOC: M ED 20:31
DX: S33.5XXA Sprain of ligaments of lumbar spine, initial encounter (principal); X50.0XXA Overexertion from strenuous movement or load, initial encounter; Y92.009 Unspecified place in unspecified non-institutional (private) residence as the place of occurrence of the external cause; Y93.89 Activity, other specified; Y99.8 Other external cause status; M54.9 Dorsalgia, unspecified; G89.29 Other chronic pain; Z79.899 Other long term (current) drug therapy; Z88.5 Allergy status to narcotic agent
CPT/HCPCS: 99283

== ENCOUNTER → 2017-08-19 | Outpatient (REF) | payer OTHER | LOC: M LAB REF 16:45 | DX: J02.9 Acute pharyngitis, unspecified (principal) | CPT/HCPCS: 87081 ==

== ENCOUNTER → 2017-12-04 | Outpatient (REF) | payer MEDICAID ==
[2017-12-04 12:20] LABS: HEMATOCRIT 44.5 % (36.0-47.0); HEMOGLOBIN 14.4 g/dl (12.0-15.5); MEAN CORPUSCULAR HEMOGLOBIN 29.4 pg (27.0-33.0); MEAN CORPUSCULAR HGB CONC 32.4 g/dl (32.0-36.5); PLATELET COUNT, AUTOMATED 229 10^3/uL (150-450); RED BLOOD COUNT 4.89 10^6/uL (4.00-5.40); RED CELL DISTRIBUTION WIDTH 12.3 % (11.5-14.5)
[2017-12-04 13:29] LABS: ALBUMIN 3.7 GM/DL (3.2-5.2); ALBUMIN/GLOBULIN RATIO 1.28 (1.00-1.93); ALKALINE PHOSPHATASE 76 U/L (45-117); ALT/SGPT 21 U/L (12-78); ANION GAP 8 MEQ/L (8-16); AST/SGOT 13 U/L (7-37); BILIRUBIN,TOTAL 0.5 MG/DL (0.2-1.0); BLOOD UREA NITROGEN 11 MG/DL (7-18); CALCIUM LEVEL 8.1 MG/DL (8.5-10.1); CARBON DIOXIDE LEVEL 26 MEQ/L (21-32); CHLORIDE LEVEL 107 MEQ/L (98-107); CREATININE FOR GFR 0.62 MG/DL (0.55-1.30); FERRITIN 39 NG/ML (8-252); GLOMERULAR FILTRATION RATE > 60.0 (>60); GLUCOSE, FASTING 69 MG/DL (70-100); IRON (FE) 107 UG/DL (50-170); PERCENT SATURATION 35.2 % (13.2-45.0); POTASSIUM SERUM 4.4 MEQ/L (3.5-5.1); SODIUM LEVEL 141 MEQ/L (136-145); TOTAL 25(OH) VITAMIN D 23.2 NG/ML (30.0-100.0); TOTAL IRON BINDING CAPACITY 304 UG/DL (250-450); TOTAL PROTEIN 6.6 GM/DL (6.4-8.2)
[2017-12-04 13:50] LABS: ESTIMATED AVERAGE GLUCOSE 94 MG/DL (60-110); HEMOGLOBIN A1c 4.9 %
== END ==
LOC: M SFHCPLAZ 10:31
DX: E55.9 Vitamin D deficiency, unspecified (principal); K76.0 Fatty (change of) liver, not elsewhere classified; E16.2 Hypoglycemia, unspecified; Z98.84 Bariatric surgery status

== ENCOUNTER 2017-12-21 22:28 | Emergency (ER) | payer OTHER, MEDICAID ==
[2017-12-21] MEDS: CYCLOBENZAPRINE 10 MG TAB PO (23:18)
[2017-12-21] MEDS: KETOROLAC 60 MG/2 ML VIAL (J1885) IM (23:22)
== END 2017-12-21 23:45 | disposition home or self-care (01) ==
LOC: M ED 22:28
DX: S39.002A Unspecified injury of muscle, fascia and tendon of lower back, initial encounter (principal); X58.XXXA Exposure to other specified factors, initial encounter; Y92.89 Other specified places as the place of occurrence of the external cause; M51.26 Other intervertebral disc displacement, lumbar region; M41.9 Scoliosis, unspecified; F90.9 Attention-deficit hyperactivity disorder, unspecified type; Z98.84 Bariatric surgery status; Z88.5 Allergy status to narcotic agent
CPT/HCPCS: J1885

== ENCOUNTER 2018-02-23 16:37 | Emergency (ER) | payer OTHER ==
[~2018-02-23] VITALS: Ht 165.1 cm; Wt 54.5 kg
[~2018-02-23 16:37] MED LIST changes: +CYCL10TA PO; +GABA-845 PO; +KLOR10TA76 PO; +NAPR-50 PO; -POTA10CA PO; +VITACAP35 PO; -ZOFR20TA PO; +ZOFR4TAB14 PO; +ZOFR4TAB16 PO; -ZOFR4TAB3 PO; +[UNRECOGNIZED DRUG - OTHER] PO
[2018-02-23 17:31] LABS: HEMATOCRIT 43.2 % (36.0-47.0); HEMOGLOBIN 14.3 g/dl (12.0-15.5); MEAN CORPUSCULAR HGB CONC 33.1 g/dl (32.0-36.5); MEAN CORPUSCULAR VOLUME 90.6 fl (80.0-96.0); PLATELET COUNT, AUTOMATED 266 10^3/uL (150-450); RED BLOOD COUNT 4.77 10^6/uL (4.00-5.40); WHITE BLOOD COUNT 7.7 10^3/uL (4.0-10.0)
[2018-02-23 17:43] LABS: BLOOD UREA NITROGEN 12 MG/DL (7-18); CALCIUM LEVEL 8.2 MG/DL (8.5-10.1); CARBON DIOXIDE LEVEL 26 MEQ/L (21-32); CHLORIDE LEVEL 109 MEQ/L (98-107); CREATININE FOR GFR 0.73 MG/DL (0.55-1.30); GLOMERULAR FILTRATION RATE > 60.0 (>60); GLUCOSE, FASTING 59 MG/DL (70-100); POTASSIUM SERUM 4.3 MEQ/L (3.5-5.1); SODIUM LEVEL 142 MEQ/L (136-145)
[2018-02-23] MEDS ORDERED: NS 1,000 ML IV ONE (17:45)
[2018-02-23 19:02] LABS: INR 1.07
[2018-02-23 19:03] LABS: PARTIAL THROMBOPLASTIN TIME 30.3 SECONDS (25.4-37.6)
--- NOTE | 2018-02-23 19:46 | REPVR ---
EXAM: US Abdomen Limited EXAM DATE/TIME: 02/23/2018 6:08 PM CLINICAL HISTORY: 22 years old, female; Pain; Abdominal pain; Periumbilical; Patient HX: Umbilical pain x 3 days; Additional info: Eval umbilical hernia TECHNIQUE: Real-time ultrasound of the abdomen with image documentation. Examination is focused on the region of clinical interest. COMPARISON: Abdomen, limited US 09/21/2016 12:34 AM COMPARISON MORE: CT ABD/PEL W/IV ORAL CONTRAS 09/20/2016 10:33:13 PM FINDINGS: Soft tissues: Sonographic interrogation of the anterior abdominal wall soft tissues demonstrates a fluid collection measuring 1.6 x 0.6 x 1.1 cm. There are echogenic foci within the collection, foci of air could have this appearance. With Valsalva maneuver, no enlargement to suggest this is a bowel-containing hernia. No discrete communication identified with the peritoneal contents. Soft tissue abscess is favored. The adjacent soft tissues appear edematous and hypervascular suggesting cellulitis. IMPRESSION: 1. No evidence of a bowel-containing periumbilical hernia with Valsalva. 2. Ventral abdominal wall fluid collection primarily suspicious for abscess with regional soft tissue edema and hyperemia. Please correlate with the clinical scenario. For further characterization, CT abdomen with contrast could be obtained. Electronically signed by: Yuki Fairchild On 02/23/2018 19:46:04 PM
[2018-02-23] MEDS ORDERED: ISOVUE-370 76% 100ML VIAL (Q9967) As Ordered ONE (20:35)
--- NOTE | 2018-02-23 21:35 | REPVR ---
EXAM: CT Abdomen and Pelvis With Contrast EXAM DATE/TIME: 02/23/2018 8:41 PM CLINICAL HISTORY: 22 years old, female; Signs and symptoms; Mass, lump, or swelling; Periumbilical; Additional info: Umbilical mass TECHNIQUE: Axial computed tomography images of the abdomen and pelvis with intravenous contrast. All CT scans at this facility use at least one of these dose optimization techniques: automated exposure control; mA and/or kV adjustment per patient size (includes targeted exams where dose is matched to clinical indication); or iterative reconstruction. Coronal and sagittal reformatted images were created and reviewed. CONTRAST: 100 ml of ISOVUE 370 administered intravenously. COMPARISON: CT ABD/PEL W/IV ORAL CONTRAS 09/20/2016 10:33 PM FINDINGS: Lower thorax: Clear lung bases. ABDOMEN: Liver: Normal appearing liver. Gallbladder and bile ducts: Normal common bile duct. Surgical clips in the gallbladder fossa and the patient is status post cholecystectomy. Patient is status post cholecystectomy. Pancreas: Normal appearing pancreas. Spleen: Normal appearing spleen. Adrenals: Normal adrenal glands. Kidneys and ureters: There is enhancement of both right and left kidney. There is no evidence of a stone in the path of the right or left ureter. Stomach and bowel: Patient is status post gastric bypass. There is no evidence of bowel obstruction. The cecum is in the right pelvis and there is no evidence of inflammation. PELVIS: Bladder: Normal appearing urinary bladder. Reproductive: There is no IUD within the mid and lower portion of the endometrium. There are follicular cysts in both ovaries. There is a 2 CM enhancing collapsing cyst right ovary. ABDOMEN and PELVIS: Intraperitoneal space: No evidence of pneumoperitoneum. There is a moderate amount of free fluid in the pelvis. Bones/joints: No acute fracture. No dislocation. Soft tissues: 3 CM by 4 CM by 2.5 CM mass within the subcutaneous layer of the umbilicus. This is intermediate density mass with hazy margins very suspicious for a abscess or inflammatory mass. This could be fibrous tissue, granulomatous or neoplastic tissue but appearing inflamed. Vasculature: There is opacification of the aorta which appears intact. Lymph nodes: Normal. No enlarged lymph nodes. IMPRESSION: 1. 3 x 4 x 2.5 CM intermediate density mass at the subcutaneous layer of the umbilicus. There is hazy surrounding inflammation. This probably represents a abscess or inflammatory mass. Other considerations listed above. 2. There is a moderate amount of free fluid in the pelvis. There is a 2 cm round enhancing collapsing cyst of the right ovary. Electronically signed by: Gamaliel Cardoza On 02/23/2018 21:35:00 PM
[2018-02-23] MEDS ORDERED: CLINDAMYCIN 150 MG CAP PO ONE (22:00)
[2018-02-23] MEDS ORDERED: CLEO150C PO (22:01)
[2018-02-23 22:10] VITALS: BP 105/51
--- NOTE | 2018-02-25 08:44 | ED PDOC ---
Post-Departure Follow-Up ct abd/p faxed to dr patel and flash holder for fu Ed Philip MD Feb 25, 2018 08:44
--- NOTE | 2018-02-25 08:46 | ED PDOC ---
Post-Departure Follow-Up additionallu abdl us also faxed to dr patel and Ed Grant MD Feb 25, 2018 08:46
== END 2018-02-23 22:12 | disposition home or self-care (01) ==
LOC: M ED 16:37
DX: R22.2 Localized swelling, mass and lump, trunk (principal); E03.9 Hypothyroidism, unspecified; K74.0 Hepatic fibrosis; M32.9 Systemic lupus erythematosus, unspecified; Z88.5 Allergy status to narcotic agent
CPT/HCPCS: 36415; 74177; 76705; 80048; 81025; 85027; 85610; 85730; 96360; 96361; 99284; Q9967

== ENCOUNTER → 2018-07-25 | Outpatient (REF) | payer OTHER ==
[~2018-07-25] MED LIST changes: +CLEO150C PO; -NAPR-50 PO; +NAPR-837 PO; -NORC1TAB4 PO; +NORC1TAB7 PO
== END ==
LOC: M LAB REF 17:48
PROVIDERS: ATTEND Obstetrics & Gynecology
DX: Z12.4 Encounter for screening for malignant neoplasm of cervix (principal)

== ENCOUNTER → 2018-08-04 | Outpatient (CLI) | payer OTHER ==
[2018-08-04 21:05] LABS: BASO % 0.5 % (0.0-1.0); EOS # 0.2 10^3/uL (0.0-0.50); EOS % 2.5 % (0.0-3.0); HEMATOCRIT 46.5 % (36.0-47.0); LYMPH # 2.9 10^3/uL (1.5-6.5); LYMPH % 44.4 % (24.0-44.0); MEAN CORPUSCULAR HEMOGLOBIN 30.4 pg (27.0-33.0); MEAN CORPUSCULAR HGB CONC 32.3 g/dl (32.0-36.5); MEAN CORPUSCULAR VOLUME 94.3 fl (80.0-96.0); MONO # 0.5 10^3/uL (0.0-0.8); MONO % 7.1 % (0.0-5.0); NEUTROPHILS # 2.9 10^3/uL (1.8-7.7); NEUTROPHILS % 45.3 % (36.0-66.0); PLATELET COUNT, AUTOMATED 262 10^3/uL (150-450); RED BLOOD COUNT 4.93 10^6/uL (4.00-5.40); WHITE BLOOD COUNT 6.5 10^3/uL (4.0-10.0)
[2018-08-04 21:27] LABS: ALBUMIN 3.9 GM/DL (3.2-5.2); ALT/SGPT 19 U/L (12-78); BILIRUBIN,TOTAL 0.3 MG/DL (0.2-1.0); BLOOD UREA NITROGEN 13 MG/DL (7-18); CALCIUM LEVEL 8.6 MG/DL (8.5-10.1); CARBON DIOXIDE LEVEL 29 MEQ/L (21-32); CHLORIDE LEVEL 109 MEQ/L (98-107); CREATININE FOR GFR 0.67 MG/DL (0.55-1.30); GLOMERULAR FILTRATION RATE > 60.0 (>60); GLUCOSE, FASTING 54 MG/DL (70-100); POTASSIUM SERUM 4.6 MEQ/L (3.5-5.1); SODIUM LEVEL 142 MEQ/L (136-145); TOTAL PROTEIN 7.1 GM/DL (6.4-8.2)
[2018-08-08 00:07] LABS: Lyme Disease IgG Ab 18 kDa Ban Absent (.); Lyme Disease IgG Ab 23 kDa Ban Absent (.); Lyme Disease IgG Ab 28 kDa Ban Absent (.); Lyme Disease IgG Ab 30 kDa Ban Absent (.); Lyme Disease IgG Ab 39 kDa Ban Absent (.); Lyme Disease IgG Ab 41 kDa Ban Absent (.); Lyme Disease IgG Ab 45 kDa Ban Absent (.); Lyme Disease IgG Ab 58 kDa Ban Absent (.); Lyme Disease IgG Ab 66 kDa Ban Absent (.); Lyme Disease IgG Ab 93 kDa Ban Absent (.); Lyme Disease IgG West Blot Int Negative (.); Lyme Disease IgG/IgM Antibodie <0.91 ISR (0.00-0.90); Lyme Disease IgM Ab 23 kDa Ban Absent (.); Lyme Disease IgM Ab 39 kDa Ban Absent (.); Lyme Disease IgM Ab 41 kDa Ban Absent (.); Lyme Disease IgM Ab Quantitati 0.88 index (0.00-0.79); Lyme Disease IgM West Blot Int Negative (.)
== END ==
LOC: M WUC 18:36
PROVIDERS: ATTEND Physician Assistant
DX: R51 Headache (principal); R53.83 Other fatigue

== ENCOUNTER → 2018-08-04 | Outpatient (CLI) | payer OTHER ==
[2018-08-04 21:29] LABS: FREE T4 0.91 NG/DL (0.76-1.46); THYROID STIMULATING HORMONE 1.85 uIU/ML (0.358-3.740)
[2018-08-04 21:32] LABS: PROLACTIN 7.1 NG/ML
== END ==
LOC: M WUC 18:40
PROVIDERS: ATTEND Obstetrics & Gynecology
DX: N92.6 Irregular menstruation, unspecified (principal)

== ENCOUNTER 2018-10-08 22:35 | Emergency (ER) | payer OTHER ==
[~2018-10-08] VITALS: Ht 162.6 cm; Wt 54.5 kg
[~2018-10-08 22:35] MED LIST changes: -OMEP20CA3 PO; +OMEP20CA4 PO
[2018-10-08 22:36] VITALS: BP 104/55
[2018-10-09] MEDS ORDERED: ADACEL/BOOSTRIX VACCINE (DIPHTH/PERTUSS/ACELL/TETANUS)0.5ML SYR (90715) IM ONE (01:45)
== END 2018-10-09 02:09 | disposition home or self-care (01) ==
LOC: M ED 22:35
DX: S61.412A Laceration without foreign body of left hand, initial encounter (principal); W26.0XXA Contact with knife, initial encounter; Y92.099 Unspecified place in other non-institutional residence as the place of occurrence of the external cause; Y93.89 Activity, other specified; Y99.9 Unspecified external cause status; G47.30 Sleep apnea, unspecified; E03.9 Hypothyroidism, unspecified; K74.0 Hepatic fibrosis; N20.0 Calculus of kidney; Z98.84 Bariatric surgery status; Z88.5 Allergy status to narcotic agent

== ENCOUNTER → 2019-10-20 | Outpatient (CLI) | payer OTHER ==
[~2019-10-20] MED LIST changes: +CYCL-707 PO; -CYCL10TA PO; +OMEP1CAP73 PO; -OMEP20CA4 PO; +ONDA-83; -ONDA4TAB5
--- NOTE | 2019-11-17 13:55 | REP ---
LUMBOSACRAL SPINE SERIES: CLINICAL: Lower back pain. TECHNIQUE: AP, lateral, bilateral oblique and coned down views of the lumbosacral spine. FINDINGS: Alignment and lordosis maintained. No acute fracture/compression injury or subluxation. No spondylolysis or spondylolisthesis. No significant degenerative changes. IMPRESSION: Normal age appropriate lumbosacral spine radiograph series. MTDD
== END ==
LOC: M WUC 13:36
PROVIDERS: ATTEND Nurse Practitioner Adult Health
DX: M54.5 Low back pain (principal)

== ENCOUNTER → 2021-08-22 | Outpatient (CLI) | payer BC, OTHER ==
[~2021-08-22] MED LIST changes: +CALC-362 PO; -CHEW500C2 PO; +GABA-283 PO; -GABA-845 PO; -KLOR10TA76 PO; -MAG400TA; +MAGN400T35; +POTA-136 PO
[2021-08-22 13:48] LABS: HEMOGLOBIN 14.5 g/dl (12.0-15.5); MEAN CORPUSCULAR HGB CONC 32.2 g/dl (32.0-36.5); PLATELET COUNT, AUTOMATED 235 10^3/uL (150-450); WHITE BLOOD COUNT 4.1 10^3/uL (4.0-10.0)
[2021-08-22 14:07] LABS: ERYTHROCYTE SEDIMENTATION RATE 3 mm/hr (0-20)
[2021-08-22 14:25] LABS: ALBUMIN 3.7 GM/DL (3.2-5.2); ALT/SGPT 16 U/L (12-78); BILIRUBIN,TOTAL 0.7 MG/DL (0.2-1.0); BLOOD UREA NITROGEN 9 MG/DL (7-18); CALCIUM LEVEL 8.8 MG/DL (8.5-10.1); CARBON DIOXIDE LEVEL 30 MEQ/L (21-32); CHLORIDE LEVEL 107 MEQ/L (98-107); CREATININE FOR GFR 0.68 MG/DL (0.55-1.30); FERRITIN 8 NG/ML (8-252); GLOMERULAR FILTRATION RATE > 60.0 (>60); GLUCOSE, FASTING 79 MG/DL (70-100); IRON (FE) 107 UG/DL (50-170); PERCENT SATURATION 34.2 % (13.2-45.0); POTASSIUM SERUM 4.6 MEQ/L (3.5-5.1); RHEUMATOID FACTOR QUANT < 10.0 IU/ML (<15.0); SODIUM LEVEL 140 MEQ/L (136-145); TOTAL 25(OH) VITAMIN D 25.7 NG/ML (30.0-100.0); TOTAL IRON BINDING CAPACITY 313 UG/DL (250-450); TOTAL PROTEIN 6.5 GM/DL (6.4-8.2); VITAMIN B12 LEVEL 247 PG/ML (247-911)
[2021-08-24 14:08] LABS: ANTINUCLEAR ANTIBODIES DIRECT Negative (Negative); CYCLIC CITRULLINATED PEPTIDE 7 units (0-19)
== END ==
LOC: M PLALAB 09:44
PROVIDERS: ATTEND Nurse Practitioner Adult Health
DX: M32.9 Systemic lupus erythematosus, unspecified (principal); Z98.84 Bariatric surgery status; E55.9 Vitamin D deficiency, unspecified; K76.0 Fatty (change of) liver, not elsewhere classified; M05.79 Rheumatoid arthritis with rheumatoid factor of multiple sites without organ or systems involvement

== ENCOUNTER → 2022-03-20 | Outpatient (REF) | payer BC | LOC: M SFHCLERA 16:37 | PROVIDERS: ATTEND Student in an Organized Health Care Education/Training Program | DX: J06.9 Acute upper respiratory infection, unspecified (principal) ==

== ENCOUNTER 2023-01-04 13:04 | Day surgery (SDC) | payer BC ==
[~2023-01-04] VITALS: Ht 162.6 cm; Wt 63.7 kg
[~2023-01-04 13:04] MED LIST changes: -GABA-283 PO; +GABA-284 PO; +HYDR-3713 PO
[2023-01-04 13:40] LABS: HEMATOCRIT 42.7 % (36.0-47.0); HEMOGLOBIN 14.1 g/dl (12.0-15.5); MEAN CORPUSCULAR HEMOGLOBIN 29.4 pg (27.0-33.0); PLATELET COUNT, AUTOMATED 219 10^3/uL (150-450); WHITE BLOOD COUNT 4.4 10^3/uL (4.0-10.0)
[2023-01-04] MEDS ORDERED: B-12100010 PO (13:49)
[2023-01-04] MEDS ORDERED: LR 1,000 ML IV SCH (13:50)
[2023-01-04] MEDS ORDERED: MIDAZOLAM INJ 2MG/2ML VIAL As Ordered ONE (15:23)
[2023-01-04] MEDS ORDERED: LIDOCAINE 2% 100MG/5ML SDV (FOR ANES.) As Ordered ONE (15:23)
[2023-01-04] MEDS ORDERED: dexmedeTOMIDine (4MCG/ML)200MCG/50ML BTL (PRECEDEX) As Ordered ONE (15:23)
[2023-01-04] MEDS ORDERED: propofoL 200 MG/20 ML VIAL As Ordered ONE (15:23)
[2023-01-04] MEDS ORDERED: ONDANSETRON 4MG 2ML VIAL As Ordered ONE (15:23)
[2023-01-04] MEDS ORDERED: ROCURONIUM BROMIDE 50MG/5ML VIAL As Ordered ONE (15:23)
[2023-01-04] MEDS ORDERED: KETOROLAC 60MG 2ML VIAL As Ordered ONE (15:23)
[2023-01-04] MEDS ORDERED: fentaNYL 100 MCG/2 ML INJECTION As Ordered ONE (15:23)
[2023-01-04] MEDS ORDERED: SUGAMMADEX SODIUM 500 MG/5 ML VIAL (BRIDION) As Ordered ONE (15:23)
[2023-01-04] MEDS ORDERED: METOCLOPRAMIDE INJ 10MG/2ML VIAL As Ordered ONE (15:23)
[2023-01-04] MEDS ORDERED: ACETAMINOPHEN 1000MG 100ML IV BAG As Ordered ONE (15:34)
[2023-01-04] MEDS ORDERED: MORPHINE 2 MG/ML 1ML VIAL IV PRN (15:55)
[2023-01-04] MEDS ORDERED: fentaNYL 100 MCG/2 ML INJECTION IV PRN (15:55)
[2023-01-04] MEDS ORDERED: ONDANSETRON 4MG 2ML VIAL IV PRN (15:55)
[2023-01-04] MEDS ORDERED: traMADol 50 MG TAB PO ONE (16:20)
[2023-01-04 17:05] VITALS: BP 92/52; TEMP 98; O2SAT 100
== END 2023-01-04 17:08 | disposition home or self-care (01) ==
LOC: M SDC 13:04
PROVIDERS: ATTEND Obstetrics & Gynecology
DX: Z30.2 Encounter for sterilization (principal); Z30.432 Encounter for removal of intrauterine contraceptive device; D68.62 Lupus anticoagulant syndrome; K74.60 Unspecified cirrhosis of liver; K76.0 Fatty (change of) liver, not elsewhere classified; Z86.718 Personal history of other venous thrombosis and embolism; Z98.84 Bariatric surgery status
CPT/HCPCS: 36415; 58301; 58661; 81025; 85027; 86850; 86900; 86901; 88302; J0131; J0665; J1100; J1885; J2250; J2405; J2765; J3010

== ENCOUNTER → 2023-02-25 | Outpatient (CLI) | payer BC ==
[~2023-02-25] MED LIST changes: +B-12100010 PO
== END ==
LOC: M RAD 09:19
PROVIDERS: ATTEND Nurse Practitioner Adult Health
DX: M32.9 Systemic lupus erythematosus, unspecified (principal); R10.84 Generalized abdominal pain; Z98.84 Bariatric surgery status